=== PATIENT | female | born 1990 ===

== ENCOUNTER 2021-02-12 06:00 | Day surgery (SDC) | payer OTHER | END 2021-02-12 09:50 | disposition home or self-care (01) | LOC: AMB-ENDOS 06:00 | PROVIDERS: ATTEND Surgery | DX: D13.1 Benign neoplasm of stomach (principal); K44.9 Diaphragmatic hernia without obstruction or gangrene; Z20.822 Contact with and (suspected) exposure to COVID-19 ==